=== PATIENT | male | born 1975 | race Caucasian/White ===

== ENCOUNTER 2019-10-30 17:04 | Observation (INO) | payer OTHER ==
[2019-10-30] MEDS ORDERED: Sodium Chloride 0.9% 2.5 ML Syringe FLUSH PRN (17:10)
[2019-10-30] MEDS ORDERED: Sodium Chloride 0.9% 10 ML SDV IV PRN (17:10)
[2019-10-30] MEDS ORDERED: Sodium Chloride 0.9% 10 ML Syringe FLUSH PRN (17:10)
--- NOTE | 2019-10-30 17:33 | CR ---
Chest: PA view of the chest was obtained. Comparison: No prior chest imaging. Heart size and mediastinum are normal. Atelectasis or scarring is seen within the left lung base. Lungs otherwise are clear. Bony structures are grossly intact. Impression: 1. Atelectasis or scarring within the left base. 2. Nothing acute is otherwise seen on PA chest x-ray. Diagnostic code #2 This report was dictated in [place] Standard Time
--- NOTE | 2019-10-30 17:35 | CT ---
Head CT Technique: Multiple axial sections through the brain were obtained. Intravenous contrast was not utilized. Comparison: No prior intracranial imaging is available. Findings: Ventricles along with basal cisterns and sulci over the convexities appear within normal limits for the patient's age. No abnormal parenchymal densities are seen. No evidence of intracranial hemorrhage. No midline shift or mass-effect is seen. Bone window settings were reviewed which shows no acute calvarial abnormality. Visualized mastoid sinuses are clear. Mucosal thickening is noted within both maxillary and ethmoid sinuses with air-fluid level seen within the right maxillary sinus. Impression: 1. Sinus disease possibly acute. 2. No acute intracranial abnormality is appreciated. Diagnostic code #3
[2019-10-30 17:52] LABS: BLOOD UREA NITROGEN,BUN 18 mg/dL (7.0-18.0); CARBON DIOXIDE,CO2 23.2 mmol/L (21.0-32.0); CHLORIDE,CL 106 mmol/L (98-107); GLUCOSE RANDOM 128 mg/dL (74-106); POTASSIUM,K 3.9 mmol/L (3.5-5.1); SODIUM,NA 142 mmol/L (136-148)
[2019-10-30] MEDS ORDERED: Acetaminophen 325 MG Tab PO ONE (18:47)
--- NOTE | 2019-10-30 18:47 | EDM.PDOC ---
ED HPI GENERAL MEDICAL PROBLEM - General Chief Complaint: Neuro Symptoms/Deficits Stated Complaint: LEFT ARM NUMBNESS,HEADACHE Time Seen by Provider: 10/30/19 17:29 Source of Information: Reports: Patient History Limitations: Reports: No Limitations - History of Present Illness INITIAL COMMENTS - FREE TEXT/NARRATIVE: 44-year-old gentleman no medical problems, presenting to ER for left upper extremity numbness since night prior. Denied focal weakness or numbness. Mild headache (does get headaches)- headache was not thunderclap. no chest pain no shortness of breath. denies speech difficulty, denies trouble ambulating. symptoms began the night prior. - Related Data Allergies Allergy/AdvReac Type Severity Reaction Status Date / Time No Known Allergies Allergy Verified 10/05/16 08:00 Home Meds: Home Meds . [No Known Home Meds] 10/05/16 [History] Past Medical History - Past Health History Medical/Surgical History: Denies Medical/Surgical History HEENT History: Reports: None Cardiovascular History: Reports: None Respiratory History: Reports: Asthma Other Respiratory History: asthma as a child. No problems as an adult. Chronic tobacco use for 20 years "on and off". Gastrointestinal History: Reports: GERD Genitourinary History: Reports: None Musculoskeletal History: Reports: None Neurological History: Reports: None Psychiatric History: Reports: None Endocrine/Metabolic History: Reports: Obesity/BMI 30+ Hematologic History: Reports: None - Past Surgical History Head Surgeries/Procedures: Reports: None HEENT Surgical History: Reports: Other (See Below) - History Comment History Comment: etoh "occasional" Social & Family History - Tobacco Use Smoking Status *Q: Former Smoker Used Tobacco, but Quit: Yes Month/Year Tobacco Last Used: 2019 - Caffeine Use Caffeine Use: Reports: Coffee - Recreational Drug Use Recreational Drug Use: No ED ROS GENERAL - Review of Systems Review Of Systems: See Below Constitutional: Reports: No Symptoms HEENT: Reports: No Symptoms Respiratory: Reports: No Symptoms Cardiovascular: Reports: No Symptoms Endocrine: Reports: No Symptoms GI/Abdominal: Reports: No Symptoms : Reports: No Symptoms Musculoskeletal: Reports: No Symptoms Skin: Reports: No Symptoms Neurological: Reports: Paresthesia Psychiatric: Reports: No Symptoms Hematologic/Lymphatic: Reports: No Symptoms Immunologic: Reports: No Symptoms ED EXAM, NEURO - Physical Exam Exam: See Below Exam Limited By: Altered Mental Status General Appearance: Alert, No Apparent Distress Throat/Mouth: Normal Inspection Head Exam: Atraumatic, Normocephalic Respiratory/Chest: No Respiratory Distress, Lungs Clear Cardiovascular: Normal Peripheral Pulses, Regular Rate, Rhythm GI/Abdominal: Soft, Non-Tender (Male) Exam: Deferred Rectal (Males) Exam: Deferred Neurological: Alert, Normal Mood/Affect, Normal Dorsiflexion, CN II-XII Intact, Normal Gait, Oriented x 3, Other ([id number] normal speech fluent gait normal, strength intact in the upper extremities, sensation slightly decreased in the left upper extremity. ) Back Exam: Full Range of Motion Extremities: Normal Inspection Psychiatric: Normal Affect Skin Exam: Warm, Dry EKG INTERPRETATION Rhythm: NSR P-Wave: Present QRS: Normal ST-T: Normal QT: Normal Course - Vital Signs Last Recorded V/S: Last Vital Signs Temp 96.8 F L 10/30/19 17:09 Pulse 66 10/30/19 19:00 Resp 16 10/30/19 19:00 BP 142/89 H 10/30/19 19:00 Pulse Ox 95 10/30/19 19:00 - Orders/Labs/Meds Orders: Active Orders 24 hr Category Date Time Status Admission Status [Patient Status] [ADT] Stat ADT 10/30/19 18:46 Active Assess Neurological Status [RC] Q6HR Care 10/30/19 17:10 Active Bedrest [RC] ASDIRECTED Care 10/30/19 17:10 Active Blood Glucose Check, Bedside [RC] ONETIME Care 10/30/19 17:10 Active Cardiac Monitoring [RC] . DIRECTED Care 10/30/19 17:10 Active EKG Documentation Completion [RC] STAT Care 10/30/19 17:10 Active Height and Weight [RC] UPON Care 10/30/19 17:10 Active Initiate Acute Stroke Protocol [RC] STAT Care 10/30/19 17:10 Active Intake and Output [RC] QSHIFT Care 10/30/19 19:10 Active NIH Stroke Scale [RC] ASDIRECTED Care 10/30/19 17:10 Active Nursing Bedside Swallow Screen [RC] ASDIRECTED Care 10/30/19 17:10 Active Oxygen Therapy [RC] ASDIRECTED Care 10/30/19 17:10 Active Oxygen Therapy [RC] PRN Care 10/30/19 19:09 Active Stroke Education, General [RC] Click to Edit Care 10/30/19 17:10 Active Up ad Gifty [RC] ASDIRECTED Care 10/30/19 19:09 Active VTE/DVT Education [RC] PER UNIT ROUTINE Care 10/30/19 19:09 Active Vital Signs [RC] Q4H Care 10/30/19 17:10 Active Regular Diet [DIET] Diet 10/30/19 Dinner Active Ang Head w wo Cont [MR] Stat Exams 10/30/19 19:18 Ordered Ang Neck w wo Cont [MR] Stat Exams 10/30/19 19:18 Ordered Brain w wo Cont [MR] Routine Exams 10/30/19 20:00 Ordered CBC WITH AUTO DIFF [HEME] AM Lab 10/31/19 05:11 Ordered COMPREHENSIVE METABOLIC PN,CMP [CHEM] AM Lab 10/31/19 05:11 Ordered GLYCOSYLATED HEMOGLOBIN,HGBA1C [CHEM] Stat Lab 10/30/19 17:15 Received LIPID PANEL [CHEM] AM Lab 10/31/19 05:11 Ordered UA RFX MIRELLA AND CULT IF INDIC [URIN] Stat Lab 10/30/19 17:10 Ordered Acetaminophen [Tylenol] Med 10/30/19 19:09 Active 650 mg PO Q4H PRN Aspirin Med 10/31/19 09:00 Active 81 mg PO DAILY Docusate Sodium [Colace] Med 10/30/19 19:09 Active 100 mg PO BID PRN Enoxaparin [Lovenox] Med 10/30/19 19:15 Active 40 mg SUBCUT Q24H Ibuprofen [Motrin] Med 10/30/19 19:09 Active 600 mg PO Q6H PRN Ondansetron [Zofran ODT] Med 10/30/19 19:09 Active 4 mg PO Q4H PRN Ondansetron [Zofran] Med 10/30/19 19:09 Active 4 mg IVPUSH Q4H PRN Sodium Chloride 0.9% [Normal Saline] Med 10/30/19 17:10 Active 10 ml IV ASDIRECTED PRN Sodium Chloride 0.9% [Saline Flush] Med 10/30/19 17:10 Active 10 ml FLUSH ASDIRECTED PRN Sodium Chloride 0.9% [Saline Flush] Med 10/30/19 17:10 Active 2.5 ml FLUSH ASDIRECTED PRN atorvaSTATin [Lipitor] Med 10/30/19 21:00 Active 40 mg PO BEDTIME polyethylene glycoL 3350 [MiraLAX] Med 10/30/19 19:09 Active 17 gm PO DAILY PRN Peripheral IV Insertion Adult [OM.PC] Stat Oth 10/30/19 17:10 Ordered Peripheral IV Insertion Adult [OM.PC] Stat Oth 10/30/19 17:10 Ordered Resuscitation Status Routine Resus Stat 10/30/19 19:09 Ordered Medication Orders Acetaminophen (Tylenol) 650 mg PO Q4H PRN PRN Reason: Pain (Mild 1-3)/fever Aspirin (Aspirin) 81 mg PO DAILY TABITHA Atorvastatin Calcium (Lipitor) 40 mg PO BEDTIME TABITHA Docusate Sodium (Colace) 100 mg PO BID PRN PRN Reason: Constipation Enoxaparin Sodium (Lovenox) 40 mg SUBCUT Q24H TABITHA Ibuprofen (Motrin) 600 mg PO Q6H PRN PRN Reason: Pain (mild 1-3) Ondansetron HCl (Zofran Odt) 4 mg PO Q4H PRN PRN Reason: nausea, able to take PO Ondansetron HCl (Zofran) 4 mg IVPUSH Q4H PRN PRN Reason: Nausea Polyethylene Glycol (Miralax) 17 gm PO DAILY PRN PRN Reason: Constipation Sodium Chloride (Saline Flush) 10 ml FLUSH ASDIRECTED PRN PRN Reason: Keep Vein Open Last Admin: 10/30/19 18:22 Dose: 10 ml Sodium Chloride (Saline Flush) 2.5 ml FLUSH ASDIRECTED PRN PRN Reason: Keep Vein Open Last Admin: 10/30/19 18:22 Dose: 2.5 ml Sodium Chloride (Normal Saline) 10 ml IV ASDIRECTED PRN PRN Reason: IV Use Last Admin: 10/30/19 18:22 Dose: 10 ml Labs: Laboratory Tests 10/30/19 10/30/19 10/30/19 Range/Units 17:15 17:15 17:15 WBC 7.96 (4.0-11.0) K/uL RBC 5.17 (4.50-5.90) M/uL Hgb 15.9 (13.0-17.0) g/dL Hct 46.8 (38.0-50.0) % MCV 90.5 (80.0-98.0) fL MCH 30.8 (27.0-32.0) pg MCHC 34.0 (31.0-37.0) g/dL RDW Std Deviation 41.3 (28.0-62.0) fl RDW Coeff of Roberto 13 (11.0-15.0) % Plt Count 269 (150-400) K/uL MPV 9.40 (7.40-12.00) fL Neut % (Auto) 60.7 (48.0-80.0) % Lymph % (Auto) 30.9 (16.0-40.0) % [place] % (Auto) 5.7 (0.0-15.0) % Eos % (Auto) 2.4 (0.0-7.0) % Baso % (Auto) 0.3 (0.0-1.5) % Neut # (Auto) 4.8 (1.4-5.7) K/uL Lymph # (Auto) 2.5 H (0.6-2.4) K/uL [place] # (Auto) 0.5 (0.0-0.8) K/uL Eos # (Auto) 0.2 (0.0-0.7) K/uL Baso # (Auto) 0.0 (0.0-0.1) K/uL Nucleated RBC % 0.0 /100WBC Nucleated RBCs # 0 K/uL INR 0.90 APTT 24.0 (18.6-31.3) SEC Sodium 142 (136-148) mmol/L Potassium 3.9 (3.5-5.1) mmol/L Chloride 106 (98-107) mmol/L Carbon Dioxide 23.2 (21.0-32.0) mmol/L BUN 18 (7.0-18.0) mg/dL Creatinine 1.0 (0.8-1.3) mg/dL Est Cr Clr Drug Dosing 91.20 mL/min Estimated GFR (MDRD) > 60.0 ml/min Glucose 128 H (74-106) mg/dL Calcium 8.4 L (8.5-10.1) mg/dL Total Bilirubin 0.4 (0.2-1.0) mg/dL AST 19 (15-37) IU/L ALT 45 (14-63) IU/L Alkaline Phosphatase 60 (46-116) U/L Troponin I < 0.050 (0.000-0.056) ng/mL Total Protein 7.2 (6.4-8.2) g/dL Albumin 3.7 (3.4-5.0) g/dL Globulin 3.5 (2.6-4.0) g/dL Albumin/Globulin Ratio 1.1 (0.9-1.6) TSH 3rd Generation 2.36 (0.36-3.74) uIU/mL Meds: Medications Generic Name Dose Route Start Last Admin Trade Name Freq PRN Reason Stop Dose Admin Acetaminophen 650 mg 10/30/19 19:09 Tylenol PO Q4H PRN Pain (Mild 1-3)/fever Aspirin 81 mg 10/31/19 09:00 Aspirin PO DAILY [facility] Atorvastatin Calcium 40 mg 10/30/19 21:00 Lipitor PO BEDTIME TABITHA Docusate Sodium 100 mg 10/30/19 19:09 Colace PO BID PRN Constipation Enoxaparin Sodium 40 mg 10/30/19 19:15 Lovenox SUBCUT Q24H [facility] Ibuprofen 600 mg 10/30/19 19:09 Motrin PO Q6H PRN Pain (mild 1-3) Ondansetron HCl 4 mg 10/30/19 19:09 Zofran Odt PO Q4H PRN nausea, able to take PO Ondansetron HCl 4 mg 10/30/19 19:09 Zofran IVPUSH Q4H PRN Nausea Polyethylene Glycol 17 gm 10/30/19 19:09 Miralax PO DAILY PRN Constipation Sodium Chloride 10 ml 10/30/19 17:10 10/30/19 18:22 Saline Flush FLUSH 10 ml ASDIRECTED PRN Administration Keep Vein Open Sodium Chloride 2.5 ml 10/30/19 17:10 10/30/19 18:22 Saline Flush FLUSH 2.5 ml ASDIRECTED PRN Administration Keep Vein Open Sodium Chloride 10 ml 10/30/19 17:10 10/30/19 18:22 Normal Saline IV 10 ml ASDIRECTED PRN Administration IV Use Discontinued Medications Generic Name Dose Route Start Last Admin Trade Name Freq PRN Reason Stop Dose Admin Acetaminophen 650 mg 10/30/19 18:47 10/30/19 19:13 Tylenol PO 10/30/19 18:48 650 mg NOW ONE Administration Aspirin 81 mg 10/30/19 18:48 10/30/19 19:13 Halfprin PO 10/30/19 18:49 81 mg ONETIME ONE Administration - Re-Assessments/Exams Free Text/Narrative Re-Assessment/Exam: 10/30/19 18:53 Left upper extremity numbness, referred by PMD for stroke work-up. Outside TPA window, mild deficits. Besides the sensory deficit neurological exam was unremarkable. Departure - Departure Time of Disposition: 19:46 Disposition: Admitted As Inpatient 66 Clinical Impression: Stroke - Discharge Information Referrals: Alexandre Marx MD [Primary Care Provider] - Forms: ED Department Discharge Sepsis Event Note - Evaluation Sepsis Screening Result: No Definite Risk - Focused Exam Vital Signs: Vital Signs Temp Pulse Resp BP Pulse Ox 10/30/19 19:00 66 16 142/89 H 95 10/30/19 18:30 58 L 18 128/73 97 10/30/19 18:00 63 18 131/73 95 10/30/19 17:30 75 18 164/99 H 96 10/30/19 17:09 96.8 F L 73 16 159/93 H 94 L Date Exam was Performed: 10/30/19 Time Exam was Performed: 19:45 - My Orders Last 24 Hours: My Active Orders 10/30/19 18:46 Admission Status [Patient Status] [ADT] Stat - Assessment/Plan Last 24 Hours: My Active Orders 10/30/19 18:46 Admission Status [Patient Status] [ADT] Stat
[2019-10-30] MEDS ORDERED: Aspirin 81 MG Tab.EC PO ONE (18:48)
--- NOTE | 2019-10-30 19:04 | PCM.HP.2 ---
H&P History of Present Illness - General Date of Service: 10/30/19 Admit Problem/Dx: Admission Diagnosis/Problem Admission Diagnosis/Problem Stroke of unknown etiology - History of Present Illness Initial Comments - Free Text/Narative: 44 y/o male with no significant past medical history who presented to the ER complaining of left arm numbness. Patient states that he started feeling his left arm numb from shoulder down to hand last night when he was working on his computer. He did not think much of it since he thought that it would go away. However, this morning he woke up still with his left arm being numb. He was able to move his arm and strength was intact. No facial droop or difficulty speaking, swallowing. No troubles ambulating. Denies any recent trauma to neck or arm. In the ER, CT head negative. No focal neurological deficits except for left arm paresthesia. He received aspirin 81 mg once. - Related Data Allergies/Adverse Reactions: Allergies Allergy/AdvReac Type Severity Reaction Status Date / Time No Known Allergies Allergy Verified 10/05/16 08:00 Home Medications: Home Meds . [No Known Home Meds] 10/05/16 [History] Past Medical History - Past Health History Medical/Surgical History: Denies Medical/Surgical History HEENT History: Reports: None Cardiovascular History: Reports: None Respiratory History: Reports: Asthma Other Respiratory History: asthma as a child. No problems as an adult. Chronic tobacco use for 20 years "on and off". Gastrointestinal History: Reports: GERD Genitourinary History: Reports: None Musculoskeletal History: Reports: None Neurological History: Reports: None Psychiatric History: Reports: None Endocrine/Metabolic History: Reports: Obesity/BMI 30+ Hematologic History: Reports: None - Past Surgical History Head Surgeries/Procedures: Reports: None HEENT Surgical History: Reports: Other (See Below) - History Comment History Comment: etoh "occasional" Social & Family History - Tobacco Use Smoking Status *Q: Former Smoker Used Tobacco, but Quit: Yes Month/Year Tobacco Last Used: 2019 - Caffeine Use Caffeine Use: Reports: Coffee - Recreational Drug Use Recreational Drug Use: No H&P Review of Systems - Review of Systems: Review Of Systems: Comprehensive ROS is negative, except as noted in HPI. Exam - Exam Exam: See Below - Vital Signs Vital Signs: Last Vital Signs Temp 36.0 C L 02/24/20 17:09 Pulse 63 10/30/19 18:00 Resp 18 10/30/19 18:00 BP 131/73 10/30/19 18:00 Pulse Ox 95 10/30/19 18:00 Weight: 104.326 kg - Exam General: Alert, Oriented, Cooperative HEENT: Conjunctiva Clear, Mucosa Moist & [place], Pupils Equal Neck: Supple, Full Range of Motion Lungs: Clear to Auscultation, Normal Respiratory Effort. No: Crackles, Wheezing Cardiovascular: Regular Rate, Regular Rhythm GI/Abdominal Exam: Normal Bowel Sounds, Soft, Non-Tender, No Distention Extremities: Normal Inspection, No Pedal Edema Skin: Warm, Dry Neurological: Cranial Nerves Intact Neuro Extensive - Mental Status: Alert, Oriented x3 Neuro Extensive - Motor, Sensory, Reflexes: Normal Gait, Other (decreased sensation on left arm. strength intact.) - Patient Data Lab Results Last 24 hrs: Laboratory Results - last 24 hr 10/30/19 10/30/19 10/30/19 Range/Units 17:15 17:15 17:15 WBC 7.96 (4.0-11.0) K/uL RBC 5.17 (4.50-5.90) M/uL Hgb 15.9 (13.0-17.0) g/dL Hct 46.8 (38.0-50.0) % MCV 90.5 (80.0-98.0) fL MCH 30.8 (27.0-32.0) pg MCHC 34.0 (31.0-37.0) g/dL RDW Std Deviation 41.3 (28.0-62.0) fl RDW Coeff of Roberto 13 (11.0-15.0) % Plt Count 269 (150-400) K/uL MPV 9.40 (7.40-12.00) fL Neut % (Auto) 60.7 (48.0-80.0) % Lymph % (Auto) 30.9 (16.0-40.0) % [place] % (Auto) 5.7 (0.0-15.0) % Eos % (Auto) 2.4 (0.0-7.0) % Baso % (Auto) 0.3 (0.0-1.5) % Neut # (Auto) 4.8 (1.4-5.7) K/uL Lymph # (Auto) 2.5 H (0.6-2.4) K/uL [place] # (Auto) 0.5 (0.0-0.8) K/uL Eos # (Auto) 0.2 (0.0-0.7) K/uL Baso # (Auto) 0.0 (0.0-0.1) K/uL Nucleated RBC % 0.0 /100WBC Nucleated RBCs # 0 K/uL INR 0.90 APTT 24.0 (18.6-31.3) SEC Sodium 142 (136-148) mmol/L Potassium 3.9 (3.5-5.1) mmol/L Chloride 106 (98-107) mmol/L Carbon Dioxide 23.2 (21.0-32.0) mmol/L BUN 18 (7.0-18.0) mg/dL Creatinine 1.0 (0.8-1.3) mg/dL Est Cr Clr Drug Dosing 91.20 mL/min Estimated GFR (MDRD) > 60.0 ml/min Glucose 128 H (74-106) mg/dL Calcium 8.4 L (8.5-10.1) mg/dL Total Bilirubin 0.4 (0.2-1.0) mg/dL AST 19 (15-37) IU/L ALT 45 (14-63) IU/L Alkaline Phosphatase 60 (46-116) U/L Troponin I < 0.050 (0.000-0.056) ng/mL Total Protein 7.2 (6.4-8.2) g/dL Albumin 3.7 (3.4-5.0) g/dL Globulin 3.5 (2.6-4.0) g/dL Albumin/Globulin Ratio 1.1 (0.9-1.6) TSH 3rd Generation 2.36 (0.36-3.74) uIU/mL Result Diagrams: 10/30/19 17:15 10/30/19 17:15 Sepsis Event Note - Evaluation Sepsis Screening Result: No Definite Risk - Focused Exam Vital Signs: Vital Signs Temp Pulse Resp BP Pulse Ox 10/30/19 18:00 63 18 131/73 95 10/30/19 17:30 75 18 164/99 H 96 10/30/19 17:09 36.0 C L 73 16 159/93 H 94 L Date Exam was Performed: 10/30/19 Time Exam was Performed: 20:39 Problem List Initiated/Reviewed/Updated: Yes Orders Last 24hrs: Active Orders 24 hr Category Date Time Status Admission Status [Patient Status] [ADT] Stat ADT 10/30/19 18:46 Active Assess Neurological Status [RC] ASDIRECTED Care 10/30/19 17:10 Active Bedrest [RC] ASDIRECTED Care 10/30/19 17:10 Active Blood Glucose Check, Bedside [RC] ONETIME Care 10/30/19 17:10 Active Cardiac Monitoring [RC] . DIRECTED Care 10/30/19 17:10 Active EKG Documentation Completion [RC] STAT Care 10/30/19 17:10 Active Height and Weight [RC] UPON Care 10/30/19 17:10 Active Initiate Acute Stroke Protocol [RC] STAT Care 10/30/19 17:10 Active NIH Stroke Scale [RC] ASDIRECTED Care 10/30/19 17:10 Active Nursing Bedside Swallow Screen [RC] ASDIRECTED Care 10/30/19 17:10 Active Oxygen Therapy [RC] ASDIRECTED Care 10/30/19 17:10 Active Stroke Education, General [RC] Click to Edit Care 10/30/19 17:10 Active Vital Signs [RC] Q15M Care 10/30/19 17:10 Active UA RFX MIRELLA AND CULT IF INDIC [URIN] Stat Lab 10/30/19 17:10 Ordered Sodium Chloride 0.9% [Normal Saline] Med 10/30/19 17:10 Active 10 ml IV ASDIRECTED PRN Sodium Chloride 0.9% [Saline Flush] Med 10/30/19 17:10 Active 10 ml FLUSH ASDIRECTED PRN Sodium Chloride 0.9% [Saline Flush] Med 10/30/19 17:10 Active 2.5 ml FLUSH ASDIRECTED PRN Peripheral IV Insertion Adult [OM.PC] Stat Oth 10/30/19 17:10 Ordered Peripheral IV Insertion Adult [OM.PC] Stat Oth 10/30/19 17:10 Ordered Medication Orders Sodium Chloride (Saline Flush) 10 ml FLUSH ASDIRECTED PRN PRN Reason: Keep Vein Open Last Admin: 10/30/19 18:22 Dose: 10 ml Sodium Chloride (Saline Flush) 2.5 ml FLUSH ASDIRECTED PRN PRN Reason: Keep Vein Open Last Admin: 10/30/19 18:22 Dose: 2.5 ml Sodium Chloride (Normal Saline) 10 ml IV ASDIRECTED PRN PRN Reason: IV Use Last Admin: 10/30/19 18:22 Dose: 10 ml Assessment/Plan Comment:: A: 1. Left arm paresthesia P: 1. Will treat for suspected TIA. Ordered MRI Brain, MRA neck and head. Aspirin 81 mg PO daily. May benefit from outpatient EMG upper extremity for further evaluation. Dispo: 1-2 days.
[2019-10-30] MEDS ORDERED: Ibuprofen 600 MG Tab PO PRN (19:09)
[2019-10-30] MEDS ORDERED: Acetaminophen 325 MG Tab PO PRN (19:09)
[2019-10-30] MEDS ORDERED: Polyethylene Glycol 3350 Powder 17 GM Packet PO PRN (19:09)
[2019-10-30] MEDS ORDERED: Docusate Sodium 100 MG Cap PO PRN (19:09)
[2019-10-30] MEDS ORDERED: Ondansetron 4 MG/2 ML SDV IVPUSH PRN (19:09)
[2019-10-30] MEDS ORDERED: Ondansetron 4 MG Tab.DIS PO PRN (19:09)
[2019-10-30] MEDS ORDERED: Enoxaparin 40 MG/0.4 ML Syringe SUBCUT SCH (19:15)
[2019-10-30 19:52] LABS: HEMOGLOBIN A1C 5.5 % (4.5-6.2)
[2019-10-30] MEDS ORDERED: atorvaSTATin 40 MG Tab PO SCH (21:00)
[2019-10-31 07:08] LABS: BLOOD UREA NITROGEN,BUN 16 mg/dL (7.0-18.0); CARBON DIOXIDE,CO2 24.8 mmol/L (21.0-32.0); CHLORIDE,CL 108 mmol/L (98-107); GLUCOSE RANDOM 124 mg/dL (74-106); POTASSIUM,K 3.7 mmol/L (3.5-5.1); SODIUM,NA 144 mmol/L (136-148)
[2019-10-31] MEDS ORDERED: Cyanocobalamin (Vitamin B12) 1,000 MCG/ML SDV IM ONE (07:58)
[2019-10-31] MEDS ORDERED: Gadobenate Dimeglumine 529 MG/ML 20 ML SDV IVPUSH STA (08:14)
[2019-10-31] MEDS ORDERED: Cyanocobalamin (Vitamin B12) 500 MCG Tab PO SCH (09:00)
[2019-10-31] MEDS ORDERED: Aspirin 81 MG Tab.Chew PO SCH (09:00)
[2019-10-31] MEDS ORDERED: Folic Acid 1 MG Tab PO SCH (09:00)
--- NOTE | 2019-10-31 09:13 | PCM.DCSUM1 ---
Discharge Summary - Hospital Course Free Text/Narrative:: 44 y/o male who presented to the ER complaining of left arm paresthesia for more than 1 day. No other focal neurological deficits on exam. Stroke code was called in the ER and CT head was negative for any intracranial bleeding. He was admitted for left arm paresthesia. MRI Brain, Neck did not show any ischemic changes or masses. No carotid stenosis. Curb sided with Dr. Chandler, Neurology about MRI imaging and she did not find any focal abnormalities on imaging. Patient's symptoms improved some what but he still had some left arm paresthesia. His folic acid was low at 8 and vitamin B12 was borderline at 300. He was started on Folic acid and vitamin B12 supplements. His triglyceride level was in 600's and total cholesterol of 220. Started on Atorvastatin. In addition, he was advised to stop smoking and follow-up with his PCP for possible cervical spine imaging to assess for any cervical radiculopathy and neurology for possible EMG and further evaluation as outpatient. - Discharge Data Discharge Date: 11/01/19 Discharge Disposition: Home, Self-Care 01 Condition: Good - Referral to Home Health Primary Care Physician: Alexandre Marx MD - Patient Instructions Diet: Heart Healthy Diet, Drink 8-10+ Glasses/Day Activity: As Tolerated - Discharge Plan Prescriptions/Med Rec: Aspirin 81 mg PO DAILY 30 Days #30 tab.chew atorvaSTATin [Lipitor] 40 mg PO BEDTIME 30 Days #30 tablet Cyanocobalamin (Vitamin B12) [Vitamin B12] 500 mcg PO DAILY 30 Days #30 tablet Folic Acid 1 mg PO DAILY 30 Days #30 tablet Home Medications: Home Meds Aspirin 81 mg PO DAILY 30 Days #30 tab.chew 10/31/19 [Rx] Cyanocobalamin (Vitamin B12) [Vitamin B12] 500 mcg PO DAILY 30 Days #30 tablet 10/31/19 [Rx] Folic Acid 1 mg PO DAILY 30 Days #30 tablet 10/31/19 [Rx] atorvaSTATin [Lipitor] 40 mg PO BEDTIME 30 Days #30 tablet 10/31/19 [Rx] Patient Handouts: Paresthesia, Vitamin B12 Deficiency, Vitamin B12 oral, Atorvastatin tablets, Aspirin, ASA oral tablets, Folic Acid, Vitamin B9 tablets Referrals: [facility] [Outside] Alexandre Marx MD [Primary Care Provider] - 11/21/19 8:00 am - Discharge Summary/Plan Comment DC Time >30 min.: No - Patient Data Vitals - Most Recent: Last Vital Signs Temp 36.3 C 10/31/19 08:00 Pulse 63 10/31/19 08:00 Resp 18 10/31/19 08:00 BP 132/66 10/31/19 08:00 Pulse Ox 95 10/31/19 08:00 Weight - Most Recent: 103.2 kg I&O - Last 24 hours: Intake & Output 10/30/19 10/31/19 10/31/19 22:59 06:59 14:59 Intake Total 240 Output Total 350 Balance -110 Lab Results - Last 24 hrs: Laboratory Results - last 24 hr 10/30/19 10/30/19 10/30/19 Range/Units 17:15 17:15 17:15 WBC 7.96 (4.0-11.0) K/uL RBC 5.17 (4.50-5.90) M/uL Hgb 15.9 (13.0-17.0) g/dL Hct 46.8 (38.0-50.0) % MCV 90.5 (80.0-98.0) fL MCH 30.8 (27.0-32.0) pg MCHC 34.0 (31.0-37.0) g/dL RDW Std Deviation 41.3 (28.0-62.0) fl RDW Coeff of Roberto 13 (11.0-15.0) % Plt Count 269 (150-400) K/uL MPV 9.40 (7.40-12.00) fL Neut % (Auto) 60.7 (48.0-80.0) % Lymph % (Auto) 30.9 (16.0-40.0) % Tift % (Auto) 5.7 (0.0-15.0) % Eos % (Auto) 2.4 (0.0-7.0) % Baso % (Auto) 0.3 (0.0-1.5) % Neut # (Auto) 4.8 (1.4-5.7) K/uL Lymph # (Auto) 2.5 H (0.6-2.4) K/uL Tift # (Auto) 0.5 (0.0-0.8) K/uL Eos # (Auto) 0.2 (0.0-0.7) K/uL Baso # (Auto) 0.0 (0.0-0.1) K/uL Nucleated RBC % 0.0 /100WBC Nucleated RBCs # 0 K/uL INR 0.90 APTT 24.0 (18.6-31.3) SEC Sodium 142 (136-148) mmol/L Potassium 3.9 (3.5-5.1) mmol/L Chloride 106 (98-107) mmol/L Carbon Dioxide 23.2 (21.0-32.0) mmol/L BUN 18 (7.0-18.0) mg/dL Creatinine 1.0 (0.8-1.3) mg/dL Est Cr Clr Drug Dosing 91.20 mL/min Estimated GFR (MDRD) > 60.0 ml/min Glucose 128 H (74-106) mg/dL POC Glucose (60-110) mg/dL Hemoglobin A1c (4.5-6.2) % Calcium 8.4 L (8.5-10.1) mg/dL Total Bilirubin 0.4 (0.2-1.0) mg/dL AST 19 (15-37) IU/L ALT 45 (14-63) IU/L Alkaline Phosphatase 60 (46-116) U/L Troponin I < 0.050 (0.000-0.056) ng/mL Total Protein 7.2 (6.4-8.2) g/dL Albumin 3.7 (3.4-5.0) g/dL Globulin 3.5 (2.6-4.0) g/dL Albumin/Globulin Ratio 1.1 (0.9-1.6) Triglycerides (0-200) mg/dL Cholesterol (50-200) mg/dL HDL Cholesterol (40-60) mg/dL Cholesterol/HDL Ratio (3.3-6.0) Vitamin B12 (193-986) pg/mL Folate (8.60-58.90) ng/mL TSH 3rd Generation 2.36 (0.36-3.74) uIU/mL Urine Color Urine Appearance Urine pH (5.0-8.0) Ur Specific [place] (1.001-1.035) Urine Protein (NEGATIVE) mg/dL Urine Glucose (UA) (NEGATIVE) mg/dL Urine Ketones (NEGATIVE) mg/dL Urine Occult Blood (NEGATIVE) Urine Nitrite (NEGATIVE) Urine Bilirubin (NEGATIVE) Urine Urobilinogen (<2.0) EU/dL Ur Leukocyte Esterase (NEGATIVE) 10/30/19 10/31/19 10/31/19 Range/Units 17:15 05:31 05:31 WBC 6.67 (4.0-11.0) K/uL RBC 4.67 (4.50-5.90) M/uL Hgb 14.3 (13.0-17.0) g/dL Hct 42.6 (38.0-50.0) % MCV 91.2 (80.0-98.0) fL MCH 30.6 (27.0-32.0) pg MCHC 33.6 (31.0-37.0) g/dL RDW Std Deviation 41.6 (28.0-62.0) fl RDW Coeff of Roberto 13 (11.0-15.0) % Plt Count 244 (150-400) K/uL MPV 9.30 (7.40-12.00) fL Neut % (Auto) 58.5 (48.0-80.0) % Lymph % (Auto) 30.6 (16.0-40.0) % Tift % (Auto) 7.0 (0.0-15.0) % Eos % (Auto) 3.6 (0.0-7.0) % Baso % (Auto) 0.3 (0.0-1.5) % Neut # (Auto) 3.9 (1.4-5.7) K/uL Lymph # (Auto) 2.0 (0.6-2.4) K/uL Tift # (Auto) 0.5 (0.0-0.8) K/uL Eos # (Auto) 0.2 (0.0-0.7) K/uL Baso # (Auto) 0.0 (0.0-0.1) K/uL Nucleated RBC % 0.0 /100WBC Nucleated RBCs # 0 K/uL INR APTT (18.6-31.3) SEC Sodium 144 (136-148) mmol/L Potassium 3.7 (3.5-5.1) mmol/L Chloride 108 H (98-107) mmol/L Carbon Dioxide 24.8 (21.0-32.0) mmol/L BUN 16 (7.0-18.0) mg/dL Creatinine 0.9 (0.8-1.3) mg/dL Est Cr Clr Drug Dosing 101.33 mL/min Estimated GFR (MDRD) > 60.0 ml/min Glucose 124 H (74-106) mg/dL POC Glucose (60-110) mg/dL Hemoglobin A1c 5.5 (4.5-6.2) % Calcium 8.4 L (8.5-10.1) mg/dL Total Bilirubin 0.3 (0.2-1.0) mg/dL AST 4 L (15-37) IU/L ALT 33 (14-63) IU/L Alkaline Phosphatase 51 (46-116) U/L Troponin I (0.000-0.056) ng/mL Total Protein 6.1 L (6.4-8.2) g/dL Albumin 3.1 L (3.4-5.0) g/dL Globulin 3.0 (2.6-4.0) g/dL Albumin/Globulin Ratio 1.0 (0.9-1.6) Triglycerides 664 H (0-200) mg/dL Cholesterol 220 H (50-200) mg/dL HDL Cholesterol 30 L (40-60) mg/dL Cholesterol/HDL Ratio 7.3 H (3.3-6.0) Vitamin B12 321 (193-986) pg/mL Folate 8.50 L (8.60-58.90) ng/mL TSH 3rd Generation (0.36-3.74) uIU/mL Urine Color Urine Appearance Urine pH (5.0-8.0) Ur Specific Newberry (1.001-1.035) Urine Protein (NEGATIVE) mg/dL Urine Glucose (UA) (NEGATIVE) mg/dL Urine Ketones (NEGATIVE) mg/dL Urine Occult Blood (NEGATIVE) Urine Nitrite (NEGATIVE) Urine Bilirubin (NEGATIVE) Urine Urobilinogen (<2.0) EU/dL Ur Leukocyte Esterase (NEGATIVE) 10/31/19 10/31/19 Range/Units 05:45 06:47 WBC (4.0-11.0) K/uL RBC (4.50-5.90) M/uL Hgb (13.0-17.0) g/dL Hct (38.0-50.0) % MCV (80.0-98.0) fL MCH (27.0-32.0) pg MCHC (31.0-37.0) g/dL RDW Std Deviation (28.0-62.0) fl RDW Coeff of Roberto (11.0-15.0) % Plt Count (150-400) K/uL MPV (7.40-12.00) fL Neut % (Auto) (48.0-80.0) % Lymph % (Auto) (16.0-40.0) % Tift % (Auto) (0.0-15.0) % Eos % (Auto) (0.0-7.0) % Baso % (Auto) (0.0-1.5) % Neut # (Auto) (1.4-5.7) K/uL Lymph # (Auto) (0.6-2.4) K/uL Tift # (Auto) (0.0-0.8) K/uL Eos # (Auto) (0.0-0.7) K/uL Baso # (Auto) (0.0-0.1) K/uL Nucleated RBC % /100WBC Nucleated RBCs # K/uL INR APTT (18.6-31.3) SEC Sodium (136-148) mmol/L Potassium (3.5-5.1) mmol/L Chloride (98-107) mmol/L Carbon Dioxide (21.0-32.0) mmol/L BUN (7.0-18.0) mg/dL Creatinine (0.8-1.3) mg/dL Est Cr Clr Drug Dosing mL/min Estimated GFR (MDRD) ml/min Glucose (74-106) mg/dL POC Glucose 116 H (60-110) mg/dL Hemoglobin A1c (4.5-6.2) % Calcium (8.5-10.1) mg/dL Total Bilirubin (0.2-1.0) mg/dL AST (15-37) IU/L ALT (14-63) IU/L Alkaline Phosphatase (46-116) U/L Troponin I (0.000-0.056) ng/mL Total Protein (6.4-8.2) g/dL Albumin (3.4-5.0) g/dL Globulin (2.6-4.0) g/dL Albumin/Globulin Ratio (0.9-1.6) Triglycerides (0-200) mg/dL Cholesterol (50-200) mg/dL HDL Cholesterol (40-60) mg/dL Cholesterol/HDL Ratio (3.3-6.0) Vitamin B12 (193-986) pg/mL Folate (8.60-58.90) ng/mL TSH 3rd Generation (0.36-3.74) uIU/mL Urine Color YELLOW Urine Appearance CLEAR Urine pH 6.0 (5.0-8.0) Ur Specific Newberry >= 1.030 (1.001-1.035) Urine Protein NEGATIVE (NEGATIVE) mg/dL Urine Glucose (UA) NEGATIVE (NEGATIVE) mg/dL Urine Ketones NEGATIVE (NEGATIVE) mg/dL Urine Occult Blood NEGATIVE (NEGATIVE) Urine Nitrite NEGATIVE (NEGATIVE) Urine Bilirubin NEGATIVE (NEGATIVE) Urine Urobilinogen 0.2 (<2.0) EU/dL Ur Leukocyte Esterase NEGATIVE (NEGATIVE) Med Orders - Current: Current Medications Acetaminophen (Tylenol) 650 mg PO Q4H PRN PRN Reason: Pain (Mild 1-3)/fever Aspirin (Aspirin) 81 mg PO DAILY [facility] Atorvastatin Calcium (Lipitor) 40 mg PO BEDTIME [facility] Last Admin: 10/31/19 00:01 Dose: 40 mg Cyanocobalamin (Vitamin B12) 500 mcg PO DAILY [facility] Docusate Sodium (Colace) 100 mg PO BID PRN PRN Reason: Constipation Enoxaparin Sodium (Lovenox) 40 mg SUBCUT Q24H [facility] Last Admin: 10/30/19 19:30 Dose: 40 mg Folic Acid (Folic Acid) 1 mg PO DAILY [facility] Ibuprofen (Motrin) 600 mg PO Q6H PRN PRN Reason: Pain (mild 1-3) Ondansetron HCl (Zofran Odt) 4 mg PO Q4H PRN PRN Reason: nausea, able to take PO Ondansetron HCl (Zofran) 4 mg IVPUSH Q4H PRN PRN Reason: Nausea Polyethylene Glycol (Miralax) 17 gm PO DAILY PRN PRN Reason: Constipation Sodium Chloride (Saline Flush) 10 ml FLUSH ASDIRECTED PRN PRN Reason: Keep Vein Open Last Admin: 10/30/19 18:22 Dose: 10 ml Sodium Chloride (Saline Flush) 2.5 ml FLUSH ASDIRECTED PRN PRN Reason: Keep Vein Open Last Admin: 10/30/19 18:22 Dose: 2.5 ml Sodium Chloride (Normal Saline) 10 ml IV ASDIRECTED PRN PRN Reason: IV Use Last Admin: 10/30/19 18:22 Dose: 10 ml Discontinued Medications Acetaminophen (Tylenol) 650 mg PO NOW ONE Stop: 10/30/19 18:48 Last Admin: 10/30/19 19:13 Dose: 650 mg Aspirin (Halfprin) 81 mg PO ONETIME ONE Stop: 10/30/19 18:49 Last Admin: 10/30/19 19:13 Dose: 81 mg Cyanocobalamin (Vitamin B12) 1,000 mcg IM ONETIME ONE Stop: 10/31/19 07:59 Last Admin: 10/31/19 08:15 Dose: Not Given Gadobenate Dimeglumine (Multihance) 20 ml IVPUSH ONETIME STA Stop: 10/31/19 08:15 Last Admin: 10/31/19 08:15 Dose: 20 ml
--- NOTE | 2019-10-31 10:20 | MR ---
MR angiogram of brain Technique: Multiple axial sections were obtained as a MR angiogram centered to the [place]. Multiple MIP images were obtained. Comparison: No prior intracranial vascular study is available. Findings: Focal defect identified within the distal internal carotid artery prior to the carotid siphon. This defect causes approximately 70-80 percent stenosis. Other portions of the internal carotid arteries are patent. Left vertebral artery is dominant over the right vertebral artery. Posterior cerebral arteries, middle cerebral arteries and anterior cerebral arteries are felt to be patent. Impression: 1. 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 Uncertain if this represents thrombus or plaque. 2. Dominant left vertebral artery which is a normal variant. 3. No additional abnormality is appreciated on MR angiogram of the brain. Diagnostic code #5 This report was dictated in [place] Standard Time
--- NOTE | 2019-10-31 10:35 | MR ---
MR angiogram of neck (without and with intravenous contrast) Technique: [id number] MR angiogram study was obtained centered to the carotid bifurcation. Postgadolinium images were obtained through the neck with reconstructed MIP images. Findings: Previous stenosis within the left internal carotid artery is not seen on the contrast images and therefore it is artifact on prior MR angiogram of brain. The internal carotid arteries on both sides appear widely patent. Carotid bifurcations are patent. Proximal external carotid arteries are patent. Common carotid arteries are patent. Proximal visualized brachiocephalic and subclavian arteries are patent. Impression: 1. No abnormality is seen on contrast MR angiogram study of the neck as described above. 2. Previous stenosis within the distal left internal carotid artery on MR angiogram of brain is artifact as it does not persist on this exam. Diagnostic code #1 This report was dictated in [place] Standard Time
--- NOTE | 2019-10-31 10:38 | MR ---
MRI brain (without and with intravenous contrast) Technique: T1 sagittal and coronal; T1, T2, FLAIR and diffusion axial; postcontrast T1 axial, sagittal and coronal images were obtained. Comparison: Prior head CT exam of 10/30/19. Findings: Small enhancing lesion is seen within the left cerebellar hemisphere having the appearance of a venous angioma. No other areas of abnormal enhancement is seen. Ventricles along with basal cisterns and sulci over the convexities are within normal limits. No abnormal signal is seen within the brain parenchyma. Mucosal thickening is seen within both maxillary sinuses. Possible air fluid level within the right maxillary sinus. Mild mucosal thickening is seen within the ethmoid sinuses. Normal signal void is seen within the major cerebral arteries within the skull base. No discrete diffusion abnormalities are appreciated. Impression: 1. Sinus findings as noted above. These are seen on prior CT study and difficult to exclude acute sinusitis. 2. 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 3. No additional abnormality is appreciated on MRI study of the brain. Diagnostic code #2 This report was dictated in [place] Standard Time
[2019-10-31 11:41] VITALS: BP 123/72; PULSE 61
== END 2019-10-31 12:51 | disposition home or self-care (01) ==
LOC: MW.ED 17:04 → MW.MS 18:46
PROVIDERS: ADMIT Student in an Organized Health Care Education/Training Program; ATTEND Student in an Organized Health Care Education/Training Program
DX: R20.2 Paresthesia of skin (principal); E66.9 Obesity, unspecified; Z87.891 Personal history of nicotine dependence; Z79.82 Long term (current) use of aspirin; Z79.899 Other long term (current) drug therapy; Z68.34 Body mass index [BMI] 34.0-34.9, adult
CPT/HCPCS: 36415; 70450; 70544; 70549; 70553; 71045; 80053; 80061; 81003; 82607; 82746; 82962; 83036; 84443; 84484; 85025; 85610; 85730; 93005; 99285; A9270; A9577; J1650; J7050